=== PATIENT | male | born 1970 | race African-American/Black ===

== ENCOUNTER 2016-06-27 20:05 | Emergency (ER) | payer OTHER ==
[~2016-06-27 20:05] MED LIST: CLARIT10 PO; HYDROCODONE PO; HYDROCORT12 TOP; ICY HOT16 % TOP; MULTIVIT/MIN PO; PEPTO BISMOL UD30 ML PO; PROAIR HFA INH; SYMBICORT 160/41 INH INH; TINACTIN TOP; [UNRECOGNIZED DRUG - OTHER] OPH
== END 2016-06-27 20:06 | disposition home or self-care (01) ==
LOC: ER 20:05
DX: J45.901 Unspecified asthma with (acute) exacerbation (principal); F17.200 Nicotine dependence, unspecified, uncomplicated; Z88.6 Allergy status to analgesic agent; Z79.899 Other long term (current) drug therapy
CPT/HCPCS: 71020; 94640; 99285; A9270-GY